=== PATIENT | female | born 1985 | race African-American/Black ===

== ENCOUNTER 2016-08-10 12:06 | Emergency (ER) | payer OTHER ==
[~2016-08-10] VITALS: Ht 170.2 cm; Wt 68.0 kg
[~2016-08-10 12:06] MED LIST: BACITRACIN15 GM TOPIC; BACTRIM DS TAB1 EAC1 ORAL; BACTROBAN CR1 APPLIC TOPIC; CLINDAMYCI75 MG/5 M1 PO; CLINDAMYCIN HC300 MG ORAL; DOXYCYCLINE MO100 MG ORAL; IBUPROFEN600 MG ORAL; KEFLEX500 MG ORAL; LEVAQUIN500 MG ORAL; NKM; NORCO 5-325 TA1 EACH ORAL; PERCOCET 5-3251 EACH ORAL; TRAMADOL HCL50 MG ORAL
[2016-08-10 12:22] VITALS: BP 109/66
[2016-08-10] MEDS ORDERED: Bacitracin Oint UD TOPIC ONE (12:30)
[2016-08-10] MEDS ORDERED: Lidocaine 1% MPF 10mg/ml 5ml INJ ONE (12:30)
[2016-08-10] MEDS ORDERED: BACITRACIN15 GM TOPIC (12:48)
[2016-08-10] MEDS ORDERED: CLINDAMYCIN HC300 MG ORAL (12:48)
[2016-08-10 12:51] VITALS: BP 109/66
--- NOTE | 2016-08-10 18:01 | Emergency Room Report ---
History of Present Illness General Chief Complaint: Skin Rash/Abscess Source: Patient Present Illness HPI The patient is a 31-year-old female presenting for possible abscess. The patient states that she has had abscess in the left inguinal region in the past and this feels the same. Pain began 4 days prior and has been increasing. It is now a 7/10 dull ache and is worse with touch. Pain does not radiate. She denies any other symptoms including fever, chills, vaginal discharge, dysuria, hematuria Allergies: Coded Allergies: CEPHALEXIN (Unverified Allergy, Severe, Rash, 03/06/14) SULFAMETHOXAZOLE (Unverified Allergy, Severe, Rash, 03/06/14) Patient History Past Medical History: see triage record Pertinent Family History: none Last Menstrual Period: 07/26/16 Now: No Reviewed Nursing Documentation: PMH: Agreed, PSxH: Agreed Nursing Documentation-PMH Past Medical History: No Stated History Review of Systems All Other Systems: negative except mentioned in HPI Physical Exam Vital Signs Date Time Temp Pulse Resp B/P Pulse Ox O2 Delivery O2 Flow Rate FiO2 08/10/16 12:13 98.6 74 14 109/66 98 Room Air Sp02 EP Interpretation: reviewed, normal General Appearance: no apparent distress, alert, GCS 15, non-toxic Head: normocephalic, atraumatic Eyes: bilateral eye PERRL, bilateral eye normal inspection Genitourinary: other - Abscess to L of external vagina Musculoskeletal: back normal, gait/station normal, normal range of motion, non- tender Neurologic: alert, oriented x3, responsive, motor strength/tone normal, sensory intact, speech normal Psychiatric: judgement/insight normal, memory normal, mood/affect normal, no suicidal/homicidal ideation Reflexes: 3+ bicep (R), 3+ bicep (L), 3+ tricep (R), 3+ tricep (L), 3+ knee (R) , 3+ knee (L) Skin: other - 4cm in diameter abscess L of vagina. TTP. Fluctuant. Central head Lymphatic: no adenopathy Procedures Incision and Drainage Incision and Drainage : Consent: Verbal Site: L inguinal region Blade Size: 11 I & D Procedure: betadine prep, sterile drapes applied, sterile dressing applied Wound Location: pelvis Wound's Depth, Shape: superficial Wound Length (cm): 4 Wound Explored: clean Irrigated w/ Saline (ccs): 100 Anesthesia: 1% Lidocaine Volume Anesthetic (ccs): 2 Splint Applied?: No Sling Applied?: No Patient Tolerated: Well Complications: None Medical Decision Making PA Attestation Dr. Pickett is my supervising physician. Patient management was discussed with my supervising physician Diagnostic Impression: Primary Impression: Abscess of groin, left ER Course The patient is a 31-year-old female presenting for possible abscess. Differential diagnoses considered but not limited to: abscess, cellulitis, insect bite PE: vitals WNL. NAD There is a 4 cm fluctuant tender abscess of the left inguinal region. No discharge. Betadine prep was used to clean the skin and surrounding area. One percent lidocaine without epinephrine was used to anesthetize the are of planned incision. A #11 blade was used to make an incision in the central area of fluctuance approximately 1/3 the size of the diameter of the abscess. Once the incision was made, purulent material was expressed with blood. Blunt dissection was then used to release loculations and expressed more purulent material. Once only blood appeard to be expressed from the incision, normal saline was used to irrigate the inside of the abscess. The wound was then cleaned and sterile dressing applied. Due to allergies, the patient will be placed on clindamycin. Patient will keep the area clean and dry and apply bacitracin. ER precautions are given Last Vital Signs Date Time Temp Pulse Resp B/P Pulse Ox O2 Delivery O2 Flow Rate FiO2 08/10/16 12:52 98.6 74 14 109/66 98 Room Air Status: improved Disposition: HOME, SELF-CARE Condition: Improved Scripts Clindamycin Hcl (CLINDAMYCIN HCL) 300 Mg Capsule 300 MG ORAL FOUR TIMES A DAY, #28 CAP Prov: TERZIAN,SALVADOR P.A. 08/10/16 Bacitracin (Bacitracin) 28.4 Gm Oint...g. 1 APPLIC TOPIC THREE TIMES A DAY, #28 GM Prov: TERZIAN,SALVADOR P.A. 08/10/16 Referrals: NOT CHOSEN [facility],REFERRING (PCP) Patient Instructions: Abscess, Incision and Drainage, Care After Additional Instructions: I discussed my findings with the patient. All questions and concerns have been answered. Treatment and medication compliance have been addressed. I advised the patient that they need to follow up with PMD in 3-5 days. Return to ED if symptoms worsen, new symptoms arise, or if needed for any reason. Patient verbalized understanding of discharge instructions. SALVADOR GARCIA August 10, 2016 18:01
== END 2016-08-10 12:52 | disposition home or self-care (01) ==
LOC: EMR 12:50
DX: L02.214 Cutaneous abscess of groin (principal); Z88.2 Allergy status to sulfonamides; Z88.1 Allergy status to other antibiotic agents
CPT/HCPCS: 10060

== ENCOUNTER 2016-08-20 15:27 | Emergency (ER) | payer OTHER ==
[~2016-08-20] VITALS: Ht 170.2 cm; Wt 59.0 kg
[2016-08-20] MEDS ORDERED: CLINDAMYCIN HC300 MG ORAL (16:05)
[2016-08-20 16:15] VITALS: BP 102/65
[2016-08-20 16:22] VITALS: BP 102/65
--- NOTE | 2016-08-20 22:20 | Emergency Room Report ---
History of Present Illness General Chief Complaint: Skin Rash/Abscess Source: Patient Present Illness HPI The patient is a 31-year-old female with a recurrent history of left-sided inguinal abscess presenting for possible inguinal abscess. The patient was seen in this emergency Department 10 days prior where an incision and drainage was done and the patient was placed on antibiotics. The patient states that pain and swelling significantly decreased but noticed pain today as well as swelling to the area. Pain is described as a 6/10 dull ache and does not radiate from the left side of the groin. Pain worse with touch. She denies any other symptoms including nausea, vomiting, fever, chills, abdominal pain, dysuria, vaginal discharge Allergies: Coded Allergies: CEPHALEXIN (Unverified Allergy, Severe, Rash, 03/06/14) SULFAMETHOXAZOLE (Unverified Allergy, Severe, Rash, 03/06/14) Patient History Past Medical History: see triage record Pertinent Family History: none Last Menstrual Period: 08/02/16 Now: No Reviewed Nursing Documentation: PMH: Agreed, PSxH: Agreed Nursing Documentation-PMH Past Medical History: No Stated History Review of Systems All Other Systems: negative except mentioned in HPI Physical Exam Vital Signs Date Time Temp Pulse Resp B/P Pulse Ox O2 Delivery O2 Flow Rate FiO2 08/20/16 15:47 99.1 83 16 102/65 99 Room Air Sp02 EP Interpretation: reviewed, normal General Appearance: no apparent distress, alert, GCS 15, non-toxic Head: normocephalic, atraumatic Eyes: bilateral eye PERRL, bilateral eye normal inspection Gastrointestinal: normal bowel sounds, non tender, soft, non-distended, no guarding, no rebound Genitourinary: other - L inguinal abscess Musculoskeletal: normal inspection, back normal, digits/nails normal, normal range of motion Neurologic: alert, oriented x3, responsive, motor strength/tone normal, sensory intact, speech normal Skin: normal turgor, other - 1cm abscess of L inguinal region. No fluctuance Lymphatic: no adenopathy Medical Decision Making PA Attestation Dr. Marie is my supervising physician. Patient management was discussed with my supervising physician Diagnostic Impression: Primary Impression: Abscess of groin, left ER Course The patient is a 31-year-old female presenting for left inguinal abscess Differential diagnoses considered but not limited to: abscess, cellulitis, insect bite Physical exam: Afebrile. No apparent distress Left inguinal region: There is a less than 1 cm indurated mass where past abscesses have accumulated. No bleeding or discharge. Tender to palpation. There is no indication for incision and drainage at this time. The patient will followup with PMD and was given antibiotics. She will keep the area clean and dry. She is given indications to return to the emergency department. Last Vital Signs Date Time Temp Pulse Resp B/P Pulse Ox O2 Delivery O2 Flow Rate FiO2 08/20/16 16:22 99.1 64 16 102/65 99 Room Air Status: improved Disposition: HOME, SELF-CARE Condition: Improved Scripts Clindamycin Hcl (CLINDAMYCIN HCL) 300 Mg Capsule 300 MG ORAL FOUR TIMES A DAY, #28 CAP Prov: SALVADOR GARCIA 08/20/16 Referrals: [facility] (PCP) Patient Instructions: Abscess Additional Instructions: I discussed my findings with the patient. All questions and concerns have been answered. Treatment and medication compliance have been addressed. I advised the patient that they need to follow up with PMD in 3-5 days. Return to ED if symptoms worsen, new symptoms arise, or if needed for any reason. Patient verbalized understanding of discharge instructions. SALVADOR GARCIA August 20, 2016 22:20
== END 2016-08-20 16:23 | disposition home or self-care (01) ==
LOC: EMR 16:10
DX: L02.214 Cutaneous abscess of groin (principal); Z88.2 Allergy status to sulfonamides; Z88.1 Allergy status to other antibiotic agents
CPT/HCPCS: 99283